=== PATIENT | male | born 1990 | race Caucasian/White ===

== ENCOUNTER 2022-03-03 19:38 | Emergency (ER) | payer OTHER, SELFPAY ==
--- NOTE | ~2022-03-03 | XR_ITS ---
EXAMINATION: XR chest 2V DATE: 03/03/2022 20:15 INDICATION: Dizziness. TECHNIQUE: Frontal and lateral views of the chest were obtained. COMPARISON: None. FINDINGS: There is no pneumonia, pleural effusion, or pneumothorax. The heart size is normal. IMPRESSION: 1. No acute cardiopulmonary disease. Reviewed, dictated and finalized at location A.
[2022-03-03 19:40] VITALS: BP 127/101; PULSE 75; RESP 18; TEMP 36.6; O2SAT 99
[2022-03-03 19:53] VITALS: O2SAT 100
--- NOTE | 2022-03-03 19:56 | ECG_ITS ---
Measurements Intervals [place] Rate: 62 P: 63 IA: 151 QRS: 64 QRSD: 98 T: 33 QT: 405 QTc: 414 Interpretive Statements SINUS RHYTHM WITH SINUS ARRHYTHMIA NO PREVIOUS ECG AVAILABLE FOR COMPARISON Electronically Signed On 03-04-2022 13:36:13 CDT by Margo Botello M.D.
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
[2022-03-03 20:30] VITALS: BP 135/90; PULSE 75; RESP 16; O2SAT 98
[2022-03-03] MEDS: SODIUM CHLORIDE 0.9% IV 1,000 ML 999 ML IV CONT (20:30)
[2022-03-03 20:31] LABS: Alveolar/Arterial O2 Gradient 25.2 mmHg; Base Excess ABG -3.9 mEq/l (+/-2.0); Fractional Inspired Oxygen 21 %; HCO3 ABG 20.5 mEq/l (22.0-26.0); Methemoglobin ABG 0.4 %THb (0-1.5); Oxygen Content ABG 21.2 %vol (16.0-22.0); Oxygen Saturation ABG 95.9 % (95.0-100.0); Oxyhemoglobin 95.2 % THb (90.0-100.0); PCO2 ABG 35.6 mmHg (35.0-45.0); PO2 ABG 81.9 mmHg (80.0-100.0); Reduced Hemoglobin 4.4 %THb (0-5.0); Total Hemoglobin 15.8 g/dL (12.0-18.0); pH ABG 7.378 (7.350-7.450)
[2022-03-03 20:32] LABS: Modified Allen's Test Pass; Site Drawn LEFT RADIAL
[2022-03-03 20:42] LABS: Basophils Percent Auto 0.4 % (0.2-1.2); Eosinophils Absolute Auto 0.1 K/mm3 (0-0.3); Eosinophils Percent Auto 0.5 % (0-4.4); Hematocrit 43.4 % (42.0-52.0); Hemoglobin 15.2 g/dL (14.0-18.0); Immature Granulocyte Absolute 0.04 K/mm3 (0.00-0.031); Immature Granulocyte Percent A 0.4 % (0-0.5); Lymphocytes Absolute Auto 2.36 K/mm3 (0.9-3.2); Lymphocytes Percent Auto 24.2 % (18.3-44.2); Mean Corpuscular Volume 85.6 fl (80-100); Mean Platelet Volume 11.1 fl (7.4-10.4); Monocytes Absolute Auto 0.6 K/mm3 (0.1-0.6); Monocytes Percent Auto 6.3 % (2.6-8.5); Neutrophils Absolute Auto 6.7 K/mm3 (1.3-6.7); Neutrophils Percent Auto 68.2 % (45.5-73.1); Platelet Count Result 183 k/mm3 (150-375); Red Blood Count 5.07 M/mm3 (4.6-6.20); Red Cell Distribution Width 12.2 % (11.5-14.5); White Blood Count 9.8 K/mm3 (4.5-10.0)
[2022-03-03 20:57] LABS: Alanine Aminotransferase 28 U/L (6-50); Albumin Level 4.2 g/dL (3.5-5.1); Alkaline Phosphatase 91 U/L (38-126); Anion Gap 10 mmol/L (8-16); Aspartate Amino Transferase 25 U/L (17-59); Bilirubin,Total 0.9 mg/dL (0.2-1.3); Blood Urea Nitrogen 14 mg/dL (9-20); Calcium 8.5 mg/dL (8.4-10.2); Carbon Dioxide 24 mmol/L (22-30); Chloride 103 mmol/L (98-107); Estimated CRCL calculation 108 ml/min; Estimated Glomerular Filt Rate > 60; Glucose 95 mg/dL (65-110); Potassium 3.7 mmol/L (3.4-5.0); Sodium 137 mmol/L (137-145)
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
[2022-03-03] MEDS: TETANUS,DIPHTHERIA,AC PERTUSSIS ADULT (0.5 ML) BOOSTRIX IM (21:27)
[2022-03-03 21:39] VITALS: BP 128/97; PULSE 70; RESP 16; O2SAT 96
== END 2022-03-03 21:40 | disposition home or self-care (01) ==
PROVIDERS: Emergency Provider Emergency Medicine
DX: R06.00 Dyspnea, unspecified (principal); Z57.39 Occupational exposure to other air contaminants; Z23 Encounter for immunization
CPT/HCPCS: 36415; 36600; 71046; 80053; 82375; 82805; 83050; 85025; 90471; 90715; 93005; 99284; J7030